=== PATIENT | male | born 1965 | race Hispanic/Latino ===

== ENCOUNTER 2018-04-06 14:46 | Emergency (ER) | payer OTHER ==
[~2018-04-06] VITALS: Ht 175.3 cm; Wt 92.1 kg
[2018-04-06 15:51] LABS: BASOPHILS % 0.6 % (0.0-1.0); EOSINOPHILS # (AUTO) 0.1 (0.0-0.4); EOSINOPHILS % 1.9 % (0.0-6.0); HEMATOCRIT 35.7 % (38.2-49.6); HEMOGLOBIN 11.5 g/dL (14.0-18.0); LYMPHOCYTES # (AUTO) 2.1 (1.0-3.2); LYMPHOCYTES % 34.3 % (18.0-39.1); MEAN CORPUSCULAR HEMOGLOBIN 23.8 pg (28-32); MEAN CORPUSCULAR HGB CONC 32.2 g/dL (31-35); MEAN CORPUSCULAR VOLUME 73.9 fL (81-99); MONOCYTES # (AUTO) 0.5 (0.2-0.8); MONOCYTES % 7.3 % (4.4-11.3); NEUTROPHILS # (AUTO) 3.4 (2.1-6.9); NEUTROPHILS % 55.7 % (38.7-80.0); PLATELET COUNT 127 x10e3/uL (140-360); RED BLOOD COUNT 4.83 x10e6/uL (4.3-5.7); RED CELL DISTRIBUTION WIDTH 16.2 % (11.7-14.4)
[2018-04-06 16:21] LABS: ALANINE AMINOTRANSFERASE 63 IU/L (0-55); ALBUMIN 4.4 g/dL (3.5-5.0); ALBUMIN/GLOBULIN RATIO 1.1 (0.8-2.0); ALKALINE PHOSPHATASE 89 IU/L (40-150); ANION GAP 15.7 mmol/L (8-16); BLOOD UREA NITROGEN 6 mg/dL (7-26); BUN/CREATININE RATIO 5 (6-25); CALCIUM 9.7 mg/dL (8.4-10.2); CARBON DIOXIDE 23 mmol/L (22-29); CHLORIDE 100 mmol/L (98-107); CREATININE, SERUM 1.16 mg/dL (0.72-1.25); EST GLOMERULAR FILTRATION RATE > 60 ML/MIN (60-); GLUCOSE 255 mg/dL (74-118); POTASSIUM 3.7 mmol/L (3.5-5.1); SODIUM 135 mmol/L (136-145)
[2018-04-06] MEDS ORDERED: SODIUM CHLORIDE 0.9% 1000ML 0 ML ONE (17:05)
[2018-04-06 17:58] LABS: CLARITY,URINE CLEAR (CLEAR); COLOR,URINE YELLOW (YELLOW)
[2018-04-06 17:59] LABS: BILIRUBIN,URINE NEGATIVE (NEGATIVE); KETONES,URINE NEGATIVE (NEGATIVE); LEUKOCYTE ESTERASE ,URINE NEGATIVE (NEGATIVE); NITRITE,URINE NEGATIVE (NEGATIVE); PROTEIN,URINE DIPSTICK NEGATIVE (NEGATIVE); URINE UROBILINOGEN 0.2 mg/dL (0.2 - 1)
[2018-04-06 18:13] LABS: BACTERIA,URINE RARE /HPF; EPITHELIAL CELLS,URINE RARE /LPF; RBC,URINE 0-5 /HPF (0-5); WBC,URINE (MAN) 0-5 /HPF (0-5)
== END 2018-04-06 18:50 | disposition home or self-care (01) ==
LOC: ER 14:46
DX: E10.65 Type 1 diabetes mellitus with hyperglycemia (principal); E10.40 Type 1 diabetes mellitus with diabetic neuropathy, unspecified; E05.90 Thyrotoxicosis, unspecified without thyrotoxic crisis or storm; R01.1 Cardiac murmur, unspecified
CPT/HCPCS: 36415; 80053; 81001; 82948; 85025; 99284; J7030

== ENCOUNTER 2020-02-03 20:01 | Emergency (ER) | payer BC, OTHER ==
[~2020-02-03] VITALS: Ht 175.3 cm; Wt 92.1 kg
[2020-02-03] MEDS ORDERED: KETOROLAC TROMETHAMINE 60 MG/2 ML VIAL IM ONE (20:30)
--- NOTE | 2020-02-03 20:42 | Emergency Department Note ---
History of Present Illnes History of Present Illness Chief Complaint: Extremity Trauma/Pain History of Present Illness This is a 54 year old male PRESENTS TO THE ER C/O LT KNEE PAIN S/P MECHANICAL FALL ONTO WOODEN FLOOR X2 HRS KILN TESTER; PT STATES HIS KNEE GAVE OUT; PEDAL PULSES PALPABLE AND STRONG; . Historian: Patient Arrival Mode: Car Onset (how long ago): hour(s) (1) Location: LEFT LOWER EXTREMITY Quality: PAIN Radiation: Reports non-radiation Severity: moderate Onset quality: sudden Duration (how long): hour(s) (1) Timing of current episode: constant Progression: unchanged Chronicity: new Context: Reports trauma/injury (STATES KNEE GAVE OUT AND HE FELL ONTO WOOD FLOOR, STATES THIS HAS HAPPENED IN THE PAST) Relieving factors: none Exacerbating factors: movement Associated symptoms: Reports denies other symptoms, Reports other Treatments prior to arrival: none Past Medical/Family History Physician Review I have reviewed the patient's past medical and family history. Any updates have been documented here. Past Medical History Recent Fever: No Clinical Suspicion of Infectio: No New/Unexplained Change in Ment: No Past Medical History: Hypertension, Diabetes Other Medical History: ARTHRITIS HEART MURMUR HYPERTHYROID Other Surgery: RIGHT KNEE Social History Smoking Cessation: Never Smoker Alcohol Use: None Any Illegal Drug Use: No Physically hurt or threatened: No Family History Family history of heart diseas: No Other family history HTN,DM Other Last Tetanus: UTD Any Pre-Existing Lines (PICC,: No Review of Systems Review of Systems Constitutional: Reports no symptoms EENTM: Reports no symptoms Cardiovascular: Reports no symptoms Respiratory: Reports no symptoms Gastrointestinal: Reports no symptoms Genitourinary: Reports no symptoms Musculoskeletal: Reports as per HPI Integumentary: Reports no symptoms Neurological: Reports no symptoms Psychological: Reports no symptoms Endocrine: Reports no symptoms Hematological/Lymphatic: Reports no symptoms Physical Exam Related Data Allergies: Coded Allergies: tramadol (Verified Allergy, Intermediate, DIZZINESS AND NAUSEA, 02/03/20) Triage Vital Signs Vital Signs Date Time Temp Pulse Resp B/P (MAP) Pulse Ox O2 Delivery O2 Flow Rate FiO2 02/03/20 20:24 99.9 95 20 161/66 98 Room Air Physical Exam CONSTITUTIONAL Constitutional: Present well-developed, Present well-nourished, Present distressed (MILD) HENT HENT: Present normocephalic, Present atraumatic, Present oropharynx clear/moist, Present nose normal HENT L/R: Present left ext ear normal, Present right ext ear normal EYES Eyes: Reports PERRL, Reports conjunctivae normal NECK Neck: Present ROM normal PULMONARY Pulmonary: Present effort normal, Present breath sounds normal CARDIOVASCULAR Cardiovascular: Present regular rhythm, Present heart sounds normal, Present c apillary refill normal, Present normal rate GASTROINTESTINAL Abdominal: Present soft, Present nontender, Present bowel sounds normal GENITOURINARY Genitourinary: Present exam deferred SKIN Skin: Present warm, Present dry MUSCULOSKELETAL Musculoskeletal: Present tenderness (LATERAL LEFT UPPER THIGH, PAIN TO LEFT KNEE WITH ROM. NO OBVIOUS DEFORMITY, ), Present other (PULSES INTACT) NEUROLOGICAL Neurological: Present alert, Present oriented x 3, Present no gross motor or sensory deficits PSYCHOLOGICAL Psychological: Present mood/affect normal, Present judgement normal Results Imaging Imaging results reviewed: Yes Impressions Procedure: [id number] DX/KNEE LEFT THREE VIEWS Exam Date: 02/03/20 Exam Time: 2234 REPORT STATUS: Signed X-ray pelvis 1 view and left hip 2 views X-ray left femur 2 views X-ray left knee 3 views HISTORY: Pain. COMPARISON: None available. FINDINGS: Bones: No acute displaced fracture. Osseous alignment is within normal limits. Joints: No dislocations. Mild degenerative changes in the hips. Soft tissues: Thickened partially visualized right proximal femoral shaft with coarsened trabecula and cortex. IMPRESSION: No acute fracture. Partially visualized findings in the right proximal femur could be due to prior trauma or Paget's disease. Recommend follow-up nonemergent dedicated right femoral x-ray. Signed by: Efrem Cutler DO on 02/03/2020 11:55 PM Assessment & Plan Medical Decision Making MDM PT WITH LEFT HIP, THIGH AND KNEE PAIN S/P FALL XRAYS LEFT HIP,KNEE, FEMUR ORDERED TO EVAL FOR FRACTURE TORADOL 60 MG IM ORDERED PT DISCHARGED TO FOLLOW UP WITH ORTHO, REFERRED TO DR HERRERA PT PLACED IN KNEE IMMOBILIZER, CRUTCHES PROVIDED WEIGHT BEAR TOLERATED DISCHARGED WITH TYLENOL 3# 1 PO Q 6 HOURS PRN PAIN, FLEXERIL 10 MG PO Q 8 HOURS PRN MUSCLE SPASM Reassessment Reassessment time: 00:27 Reassessment PT WITH LEFT UPPER THIGH PAIN AFTER TORADOL, NO FRACTURES FOUND ON XRAY, PT PLACED IN KNEE IMMOBILIZER, CRUTCHES PROVIDED, WEIGHT BEAR TOLERATED, Assessment & Plan Final Impression: (1) Contusion of left thigh (2) Strain of left hip and thigh Depart Disposition: HOME, SELF-CARE Last Vital Signs Date Time Temp Pulse Resp B/P (MAP) Pulse Ox O2 Delivery O2 Flow Rate FiO2 02/03/20 20:24 99.9 95 20 161/66 98 Room Air Medications in the ED Ketorolac Tromethamine 60 mg ONCE ONCE IM Last administered on 02/03/20at 20:32; Admin Dose 60 MG; Start 02/03/20 at 20:30; Stop 02/03/20 at 20:37; Status DC THUY COY MD Feb 03, 2020 20:42
--- NOTE | 2020-02-03 23:58 | Diagnostic Imaging Report ---
X-ray pelvis 1 view and left hip 2 views X-ray left femur 2 views X-ray left knee 3 views HISTORY: Pain. COMPARISON: None available. FINDINGS: Bones: No acute displaced fracture. Osseous alignment is within normal limits. Joints: No dislocations. Mild degenerative changes in the hips. Soft tissues: Thickened partially visualized right proximal femoral shaft with coarsened trabecula and cortex. IMPRESSION: No acute fracture. Partially visualized findings in the right proximal femur could be due to prior trauma or Paget's disease. Recommend follow-up nonemergent dedicated right femoral x-ray. Signed by: Efrem Cutler DO on 02/03/2020 11:55 PM
[2020-02-04] MEDS ORDERED: HYDROCODONE/APAP 10MG-325MG TAB PO ONE (00:30)
== END 2020-02-04 02:41 | disposition home or self-care (01) ==
LOC: ER 20:45
DX: S70.12XA Contusion of left thigh, initial encounter (principal); S76.912A Strain of unspecified muscles, fascia and tendons at thigh level, left thigh, initial encounter; S76.012A Strain of muscle, fascia and tendon of left hip, initial encounter; W01.0XXA Fall on same level from slipping, tripping and stumbling without subsequent striking against object, initial encounter; Y93.01 Activity, walking, marching and hiking; Y92.008 Other place in unspecified non-institutional (private) residence as the place of occurrence of the external cause; I10 Essential (primary) hypertension; E11.9 Type 2 diabetes mellitus without complications
CPT/HCPCS: 73502; 73552; 73562; 99283; J1885